=== PATIENT | female | born 1930 | race Caucasian/White ===

== ENCOUNTER 2016-10-03 13:22 | Outpatient (CLI) | payer MEDICARE, OTHER | END 2016-10-03 23:59 | DX: M12.871 Other specific arthropathies, not elsewhere classified, right ankle and foot (principal); N18.3 Chronic kidney disease, stage 3 (moderate); D50.9 Iron deficiency anemia, unspecified; I10 Essential (primary) hypertension ==

== ENCOUNTER 2017-07-24 10:55 | Outpatient (CLI) | payer MEDICARE, OTHER ==
[2017-07-24 19:11] LABS: BASOPHILS % (AUTO) 0.5 %; EOSINOPHILS # (AUTO) 0.4 10^3/uL (0.0-0.7); EOSINOPHILS % (AUTO) 4.1 %; HGB - HEMOGLOBIN 12.4 g/dL (12.0-16.0); MEAN CORPUSCULAR HEMOGLOBIN 31.7 pg (27.0-31.0); MEAN CORPUSCULAR HGB CONC 33.6 g/dL (32.0-36.0); MEAN CORPUSCULAR VOLUME 94.5 fL (81.0-99.0); MEAN PLATELET VOLUME 7.7 fL (7.9-10.8); MONOCYTES # (AUTO) 0.8 10^3/uL (0.0-1.0); MONOCYTES % (AUTO) 9.3 %; NEUTROPHILS # (AUTO) 5.9 10^3/uL (1.5-6.6); NEUTROPHILS % (AUTO) 64.1 %; RED BLOOD COUNT 3.91 10^6/uL (4.20-5.40); RED CELL DISTRIBUTION WIDTH 13.6 % (12.0-15.0); UNCORRECTED WHITE BLOOD COUNT 9.1 x10^3/uL; WHITE BLOOD COUNT 9.1 x10^3/uL (4.8-10.8)
[2017-07-24 19:28] LABS: ALBUMIN/GLOBULIN RATIO 1.4 (1.0-2.2); BILIRUBIN,TOTAL 0.6 mg/dL (0.2-1.0); BUN - BLOOD UREA NITROGEN 50 mg/dL (6-20); CALCIUM 9.6 mg/dL (8.5-10.3); CARBON DIOXIDE - CO2 26 mmol/L (21-32); CHLORIDE 103 mmol/L (101-111); CHOL/HDL RATIO 6.3 (<4.4); CHOLESTEROL 228 mg/dL; CREATININE 2.4 mg/dL (0.4-1.0); GFR - MDRD 19 (>89); GLUCOSE 108 mg/dL (70-100); HDL CHOLESTEROL 36 mg/dL; LDL/HDL RATIO 3.9 (<4.4); POTASSIUM 4.1 mmol/L (3.5-5.0); SODIUM 139 mmol/L (135-145); TOTAL PROTEIN 7.4 g/dL (6.7-8.2); TRIGLYCERIDES 263 mg/dL; VLDL CHOLESTEROL 53 mg/dL
== END 2017-07-24 10:56 | disposition home or self-care (01) ==
LOC: LAB.WCP 10:55
PROVIDERS: ATTEND Family Medicine
DX: G47.62 Sleep related leg cramps (principal); M12.871 Other specific arthropathies, not elsewhere classified, right ankle and foot; E87.1 Hypo-osmolality and hyponatremia; I12.9 Hypertensive chronic kidney disease with stage 1 through stage 4 chronic kidney disease, or unspecified chronic kidney disease; N18.3 Chronic kidney disease, stage 3 (moderate); E78.9 Disorder of lipoprotein metabolism, unspecified
CPT/HCPCS: 36415; 80053; 80061; 85025

== ENCOUNTER 2017-07-31 08:00 | Outpatient (CLI) | payer MEDICARE, OTHER ==
[2017-07-31 20:53] LABS: URIC ACID 9.7 mg/dL (2.6-7.2)
== END 2017-07-31 08:01 | disposition home or self-care (01) ==
LOC: LAB.WCP 08:00
PROVIDERS: ATTEND Family Medicine
DX: M12.871 Other specific arthropathies, not elsewhere classified, right ankle and foot (principal); L30.9 Dermatitis, unspecified
CPT/HCPCS: 36415; 84550; 85651; 86140

== ENCOUNTER 2018-03-14 10:28 | Outpatient (CLI) | payer MEDICARE, OTHER ==
[2018-03-14 12:34] LABS: BASOPHILS # (AUTO) 0.1 10^3/uL (0.0-0.1); BASOPHILS % (AUTO) 0.8 %; EOSINOPHILS # (AUTO) 0.3 10^3/uL (0.0-0.7); EOSINOPHILS % (AUTO) 3.9 %; HGB - HEMOGLOBIN 11.6 g/dL (12.0-16.0); LYMPHOCYTES # (AUTO) 2.4 10^3/uL (1.5-3.5); LYMPHOCYTES % (AUTO) 32.3 %; MEAN CORPUSCULAR HEMOGLOBIN 32.1 pg (27.0-31.0); MEAN CORPUSCULAR HGB CONC 34.5 g/dL (32.0-36.0); MEAN CORPUSCULAR VOLUME 92.9 fL (81.0-99.0); MEAN PLATELET VOLUME 8.5 fL (7.9-10.8); MONOCYTES # (AUTO) 0.8 10^3/uL (0.0-1.0); NEUTROPHILS # (AUTO) 3.8 10^3/uL (1.5-6.6); PLT - PLATELET COUNT 191 10^3/uL (130-450); RED BLOOD COUNT 3.61 10^6/uL (4.20-5.40); RED CELL DISTRIBUTION WIDTH 14.5 % (12.0-15.0); WHITE BLOOD COUNT 7.4 x10^3/uL (4.8-10.8)
[2018-03-14 12:57] LABS: THYROID STIMULATING HORMONE 9.23 uIU/mL (0.34-5.60)
[2018-03-14 13:02] LABS: FERRITIN 122.2 ng/mL (11.0-306.8)
[2018-03-14 13:03] LABS: ALBUMIN 4.4 g/dL (3.2-5.5); ALBUMIN/GLOBULIN RATIO 1.4 (1.0-2.2); CALCIUM 9.8 mg/dL (8.5-10.3); CREATININE 1.9 mg/dL (0.4-1.0); TOTAL PROTEIN 7.5 g/dL (6.7-8.2); URIC ACID 10.3 mg/dL (2.6-7.2)
== END 2018-03-14 10:29 ==
LOC: LAB.WCP 10:28
PROVIDERS: ATTEND Family Medicine
DX: E87.1 Hypo-osmolality and hyponatremia (principal); D50.9 Iron deficiency anemia, unspecified; N28.9 Disorder of kidney and ureter, unspecified; I10 Essential (primary) hypertension; E79.0 Hyperuricemia without signs of inflammatory arthritis and tophaceous disease
CPT/HCPCS: 36415; 80053; 82728; 83540; 84443; 84466; 84550; 85025

== ENCOUNTER 2018-04-26 08:00 | Outpatient (CLI) | payer MEDICARE, OTHER ==
[2018-04-26 19:18] LABS: CALCIUM 9.3 mg/dL (8.5-10.3); CREATININE 3.2 mg/dL (0.4-1.0); URIC ACID 5.7 mg/dL (2.6-7.2)
== END 2018-04-26 08:01 | disposition home or self-care (01) ==
LOC: LAB.WCP 08:00
PROVIDERS: ATTEND Physician Assistant
DX: N28.9 Disorder of kidney and ureter, unspecified (principal)
CPT/HCPCS: 36415; 80048; 84550

== ENCOUNTER 2018-04-27 10:55 | Outpatient (CLI) | payer MEDICARE, OTHER ==
[2018-04-27 11:37] LABS: CALCIUM 9.1 mg/dL (8.5-10.3)
== END 2018-04-27 10:56 | disposition home or self-care (01) ==
LOC: LAB 10:55
PROVIDERS: ATTEND Physician Assistant
DX: N18.3 Chronic kidney disease, stage 3 (moderate) (principal)
CPT/HCPCS: 36415; 80048

== ENCOUNTER 2018-04-29 09:19 | Outpatient (CLI) | payer MEDICARE, OTHER ==
[2018-04-29 13:41] LABS: CALCIUM 9.1 mg/dL (8.5-10.3); CREATININE 2.3 mg/dL (0.4-1.0)
== END 2018-04-29 09:20 ==
LOC: LAB.WCP 09:19
PROVIDERS: ATTEND Physician Assistant
DX: N18.3 Chronic kidney disease, stage 3 (moderate) (principal)
CPT/HCPCS: 36415; 80048

== ENCOUNTER 2018-05-02 08:00 | Outpatient (CLI) | payer MEDICARE, OTHER ==
[2018-05-02 18:38] LABS: CALCIUM 8.9 mg/dL (8.5-10.3); CREATININE 2.2 mg/dL (0.4-1.0)
== END 2018-05-02 08:01 | disposition home or self-care (01) ==
LOC: LAB.WCP 08:00
PROVIDERS: ATTEND Family Medicine
DX: E87.1 Hypo-osmolality and hyponatremia (principal)
CPT/HCPCS: 36415; 80048; 83930

== ENCOUNTER 2018-05-06 10:44 | Inpatient (IN) | payer MEDICARE, OTHER ==
[2018-05-06 10:58] LABS: BASOPHILS % (AUTO) 0.8 %; EOSINOPHILS # (AUTO) 0.8 10^3/uL (0.0-0.7); EOSINOPHILS % (AUTO) 12.8 %; HGB - HEMOGLOBIN 9.1 g/dL (12.0-16.0); LYMPHOCYTES # (AUTO) 1.3 10^3/uL (1.5-3.5); LYMPHOCYTES % (AUTO) 22.1 %; MEAN CORPUSCULAR HEMOGLOBIN 33.2 pg (27.0-31.0); MEAN CORPUSCULAR HGB CONC 35.5 g/dL (32.0-36.0); MEAN CORPUSCULAR VOLUME 93.7 fL (81.0-99.0); MEAN PLATELET VOLUME 8.3 fL (7.9-10.8); MONOCYTES # (AUTO) 0.9 10^3/uL (0.0-1.0); MONOCYTES % (AUTO) 14.6 %; NEUTROPHILS % (AUTO) 49.7 %; PLT - PLATELET COUNT 206 10^3/uL (130-450); RED BLOOD COUNT 2.75 10^6/uL (4.20-5.40); RED CELL DISTRIBUTION WIDTH 16.2 % (12.0-15.0); WHITE BLOOD COUNT 6.1 x10^3/uL (4.8-10.8)
[2018-05-06 11:20] LABS: ALBUMIN 3.3 g/dL (3.2-5.5); ALBUMIN/GLOBULIN RATIO 1.1 (1.0-2.2); BILIRUBIN,TOTAL 0.7 mg/dL (0.2-1.0); CALCIUM 8.8 mg/dL (8.5-10.3); CREATININE 2.3 mg/dL (0.4-1.0); TOTAL PROTEIN 6.3 g/dL (6.7-8.2)
[2018-05-06 12:09] LABS: BILIRUBIN,URINE NEGATIVE (NEGATIVE); CLARITY,URINE CLEAR (CLEAR); GLUCOSE, URINE (UA) NEGATIVE (NEGATIVE); KETONES,URINE (UA) NEGATIVE (NEGATIVE); LEUKOCYTE ESTERASE, URINE MODERATE (NEGATIVE); NITRITE,URINE NEGATIVE (NEGATIVE); OCCULT BLOOD,URINE NEGATIVE (NEGATIVE); PH,URINE 5.5 PH (5.0-7.5); PROTEIN,URINE NEGATIVE (NEGATIVE); UROBILINOGEN,URINE 0.2 (NORMAL) E.U./dL (NORMAL)
--- NOTE | 2018-05-06 12:11 | ED Physician Documentation ---
History of Present Illness - Stated complaint Stated Complaint: LOW SODIUM/WEAKNESS - Chief complaint Chief Complaint: General - Additonal information Additional information: hx from pt and sister in law 87 female per sister in law DNR limited sent to ED by PMD office today for weakness seems pt has been weak for several weeks - weak all over not focal - has seen [address] [facility], first for gout and her gout meds changed - allopuirinol caused rash so went back and that was dced and colchicine was increased then diarrhea - likely 2/2 colchicine - no culture done, no recent ab, no bad food sick contacts or travel her renal fxn was off so lasix was dced tne for generalized weakness - had labs - no UA - came back low Na so was advised to fluid restrict now she feels dehydrated and weaker than before - no fall so called clinic and sent to ED denies fever denies cough deneis soa denies abd pain denies NV denies MARTINEZ denies CP has neck pain she attributes to arthritis no abd paain some mild leg swelling Review of Systems Constitutional: reports: Fatigue. denies: Fever, Chills Throat: denies: Sore throat Cardiac: denies: Chest pain / pressure Respiratory: denies: Dyspnea, Cough GI: reports: Diarrhea. denies: Abdominal Pain, Nausea, Vomiting, Bloody / black stool : denies: Dysuria Neurologic: reports: Generalized weakness. 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 : None HEENT: Chronic vision loss Psych: None Musculoskeletal: Osteoarthritis Derm: None - Past Surgical History Past Surgical History: Yes General: Appendectomy Cardiovascular: Angioplasty HEENT: Other - Present Medications Home Medications: Ambulatory Orders Medication Instructions Recorded Confirmed Aspirin [Aspir 81] 81 mg PO DAILY 11/06/13 05/06/18 Cholecalciferol (Vitamin D3) 2,000 unit PO DAILY 11/06/13 05/06/18 [Vitamin D] Felodipine [Felodipine ER] 5 mg PO DAILY 11/06/13 05/06/18 Lisinopril 20 mg PO DAILY 11/06/13 05/06/18 Metoprolol Tartrate 50 mg PO BID 11/06/13 05/06/18 Multivit-Min/FA/Lutein/Zeaxant 1 tab PO DAILY 11/06/13 05/06/18 [Icaps Mv Tablet] Fonda-3 Fatty Acids/Fish Oil [Fish 1,200 units PO BID 11/06/13 05/06/18 Oil 1,000 mg Capsule] Simvastatin 40 mg PO DAILY 11/06/13 05/06/18 Furosemide [Lasix] 80 mg PO DAILY 11/18/13 05/06/18 Colchicine [Colcrys] 0.6 mg PO BID PRN 05/06/18 05/06/18 Gabapentin 300 mg PO BID PRN 05/06/18 05/06/18 Magnesium Oxide 500 mg PO QPM 05/06/18 05/06/18 - Allergies Allergies/Adverse Reactions: Allergies Allergy/AdvReac Type Severity Reaction Status Date / Time allopurinol Allergy Rash Verified 05/06/18 11:08 Sulfa (Sulfonamide Allergy Unknown Verified 05/06/18 12:14 Antibiotics) - Social History Does the pt smoke?: No Smoking Status: Never smoker Does the pt drink ETOH?: No Does the pt have substance abuse?: No - Immunizations Immunizations are current?: Yes - POLST Patient has POLST: No PD ED PE NORMAL - Vitals Vital signs reviewed: Yes - General General: Alert and oriented X 3 - HEENT HEENT: PERRL - Neck Neck: Supple, no meningeal sign - Cardiac Cardiac: RRR, Other (+ sig sys murmur not new per pt) - Respiratory Respiratory: Clear bilaterally - Abdomen Abdomen: Soft, Non tender - Derm Derm: Normal color - Extremities Extremities: No deformity, Other (mild edema ramírez) - Neuro Neuro: Alert and oriented X 3, contact lens blocker and cutter 2-12 intact, No motor deficit, No sensory deficit, Normal speech, Other (diffusely weak but non focal) Eye Opening: Spontaneous Motor: Obeys Commands Verbal: Oriented GCS Score: 15 Results - Vitals Vitals: Vital Signs - 24 hr 05/06/18 05/06/18 05/06/18 11:02 12:25 12:49 Temperature 36.0 C L Heart Rate 63 66 Respiratory 18 18 Rate Blood Pressure 104/56 L 98/54 L O2 Saturation 97 97 Oxygen O2 Source [With Activity] Room air O2 Source Room air - EKG (time done) 1140 Rate: Rate (enter#) (62) Rhythm: NSR Dumont: Normal Intervals: Normal CT, Wide QRS Ischemia: Other (Qs inf and anterior with coving s elev III V1 and lateral ST depression c/w subacute ischemia) - Labs Labs: Laboratory Tests 05/06/18 05/06/18 05/06/18 10:54 10:54 10:54 WBC 6.1 RBC 2.75 L Hgb 9.1 L Hct 25.8 L MCV 93.7 MCH 33.2 H MCHC 35.5 RDW 16.2 H Plt Count 206 MPV 8.3 Neut # (Auto) 3.0 Lymph # (Auto) 1.3 L [place] # (Auto) 0.9 Eos # (Auto) 0.8 H Baso # (Auto) 0.0 Absolute Nucleated RBC 0.00 Nucleated RBC % 0.0 Sodium 120 L* Potassium 4.5 Chloride 91 L Carbon Dioxide 17 L Anion Gap 12.0 BUN 62 H Creatinine 2.3 H Estimated GFR (MDRD) 20 L Glucose 105 H Calcium 8.8 Total Bilirubin 0.7 AST 50 H ALT 41 Alkaline Phosphatase 92 Troponin I 4.48 H* Total Protein 6.3 L Albumin 3.3 Globulin 3.0 Albumin/Globulin Ratio 1.1 Lipase 68 H Urine Color Urine Clarity Urine pH Ur Specific [place] Urine Protein Urine Glucose (UA) Urine Ketones Urine Occult Blood Urine Nitrite Urine Bilirubin Urine Urobilinogen Ur Leukocyte Esterase Urine RBC Urine WBC Ur Squamous Epith Cells Urine Bacteria Ur Microscopic Review Urine Culture Comments 05/06/18 11:46 WBC RBC Hgb Hct MCV MCH MCHC RDW Plt Count MPV Neut # (Auto) Lymph # (Auto) [place] # (Auto) Eos # (Auto) Baso # (Auto) Absolute Nucleated RBC Nucleated RBC % Sodium Potassium Chloride Carbon Dioxide Anion Gap BUN Creatinine Estimated GFR (MDRD) Glucose Calcium Total Bilirubin AST ALT Alkaline Phosphatase Troponin I Total Protein Albumin Globulin Albumin/Globulin Ratio Lipase Urine Color YELLOW Urine Clarity CLEAR Urine pH 5.5 Ur Specific [place] <=1.005 Urine Protein NEGATIVE Urine Glucose (UA) NEGATIVE Urine Ketones NEGATIVE Urine Occult Blood NEGATIVE Urine Nitrite NEGATIVE Urine Bilirubin NEGATIVE Urine Urobilinogen 0.2 (NORMAL) Ur Leukocyte Esterase MODERATE H Urine RBC 0-5 Urine WBC 11-25 H Ur Squamous Epith Cells MANY Squamous H Urine Bacteria Few Ur Microscopic Review INDICATED Urine Culture Comments NOT INDICATED PD MEDICAL DECISION MAKING - ED course ED course: anemia new from February renal insuff not new hyponatremia, symptomatic dehydration and a subacute [place] pt declines transfer for cath - wants med management - sister in law agrees with plan gave NS, asa, heparin, no BB 2/2on oral BB at home and HR 62 no nitrate 2/2 SBP 100 paged hospitalist at 1220 - Sepsis Event Vital Signs: Vital Signs - 24 hr 05/06/18 05/06/18 05/06/18 11:02 12:25 12:49 Temperature 36.0 C L Heart Rate 63 66 Respiratory 18 18 Rate Blood Pressure 104/56 L 98/54 L O2 Saturation 97 97 Oxygen O2 Source [With Activity] Room air O2 Source Room air Departure - Departure Disposition: 66 [facility] DC/Xfer Clinical Impression: Acute myocardial ischemia, Hyponatremia, Renal insufficiency, Dehydration Diarrhea Qualifiers: Diarrhea type: unspecified type Qualified Code(s): R19.7 - Diarrhea, unspecified Discharge Date/Time: 05/06/18 13:45
[2018-05-06] MEDS ORDERED: HEPARIN 25000UNITS/500ML (D5W) 25,000 UNIT/500 ML BAG IV STA (12:16)
[2018-05-06] MEDS ORDERED: ASPIRIN CHEW 81 MG TABLET PO STA (12:16)
[2018-05-06] MEDS ORDERED: NITROGLYCERIN 2% PASTE TOP STA (12:16)
[2018-05-06] MEDS ORDERED: SODIUM CHLORIDE 0.9% 1,000 ML IV ONE (12:21)
[2018-05-06 12:29] LABS: BACTERIA,URINE Few /HPF (None Seen); RBC,URINE 0-5 /HPF (0-5); SQUAMOUS EPITHELIAL CELL,UR MANY Squamous (<= Few)
[2018-05-06] MEDS ORDERED: TEMAZEPAM 15 MG CAPSULE PO PRN (12:55)
[2018-05-06] MEDS ORDERED: SODIUM CHLORIDE FLUSH 0.9% 10 ML SYRINGE IVP PRN (12:55)
[2018-05-06] MEDS ORDERED: ACETAMINOPHEN 325 MG TABLET PO PRN (12:55)
[2018-05-06] MEDS ORDERED: PROCHLORPERAZINE 10 MG/2 ML VIAL IVP PRN (12:55)
[2018-05-06] MEDS ORDERED: GABAPENTIN 300 MG CAPSULE PO PRN (12:59)
[2018-05-06] MEDS ORDERED: COLCHICINE 0.6 MG TABLET PO PRN (12:59)
[2018-05-06] MEDS ORDERED: NITROGLYCERIN SL 0.4 MG TABLET SL STA (13:02)
[2018-05-06] MEDS ORDERED: CLOPIDOGREL 300 MG TABLET PO STA (13:07)
--- NOTE | 2018-05-06 14:01 | XRAY Report ---
Reason: Subacute PA Procedure Date: 05/06/2018 Accession Number: [id number] / [id number] Procedure: XR - Chest 2 View X-Ray CPT Code: 88782 FULL RESULT: EXAM: CHEST RADIOGRAPHY EXAM DATE: 05/06/2018 01:32 PM. CLINICAL HISTORY: Subacute PA. COMPARISON: CHEST 1 VIEW 01/29/2014. TECHNIQUE: 2 views. FINDINGS: Lungs/Pleura: Interval development of a small left and possibly small right pleural effusion, as well as interval increase in pulmonary interstitial markings. Mediastinum: Heart and mediastinal contours are unremarkable when accounting for AP technique. Other: None. IMPRESSION: Interval development of small pleural effusion as well as likely interstitial pulmonary congestion. RADIA
[2018-05-06] MEDS: ENOXAPARIN 40 MG/0.4 ML SYRINGE SUBQ SCH ×2 (14:43→20:45)
[2018-05-06] MEDS: METOPROLOL TARTRATE 50 MG TABLET PO SCH ×2 (14:53→20:46)
[2018-05-06] MEDS: SODIUM CHLORIDE 0.9% 1,000 ML IV SCH (14:53)
[2018-05-06] MEDS: FAMOTIDINE 20 MG TABLET PO SCH (14:53)
[2018-05-06] MEDS: NITROGLYCERIN 2% PASTE TOP SCH ×2 (14:54→21:04)
[2018-05-06] MEDS: SODIUM CHLORIDE FLUSH 0.9% 10 ML SYRINGE IVP SCH (15:36)
[2018-05-06 17:36] LABS: CALCIUM 8.5 mg/dL (8.5-10.3)
[2018-05-06] MEDS: OMEGA-3 ACID ETHYL ESTERS 1 GM CAPSULE PO SCH (20:45)
[2018-05-06] MEDS: MAGNESIUM OXIDE 400 MG TABLET PO SCH (20:45)
--- NOTE | 2018-05-06 22:15 | HISTORY & PHYSICAL EXAMINATION ---
DATE OF SERVICE: 05/06/2018 Physician: Yecenia Mandel MD HISTORY OF PRESENT ILLNESS: This is an 87-year-old white female with a history of remote TX and PTCA, history of hypertension, gout, CKD, murmur. Patient started having trouble approximately 2 weeks ago when she had a gouty attack; medications were changed which caused her to have a rash. The medication also gave her diarrhea. She missed several of her medications and was told to decrease her Lasix from 80 mg a day to 40 mg a day. She became weaker with the diarrhea, had no p.o. intake for the previous 2 days. She went to see her doctor approximately 3 days ago, and lab tests were drawn. She was called today to go to the emergency room because of abnormal sodium of 120. She presented to the emergency room and described this story of weakness, and a troponin level was drawn, which was found to be 4.5, and she is being admitted for an TX. PAST MEDICAL HISTORY 1. Hypertension. 2. Chronic kidney disease. 3. Heart murmur. 4. Gout. 5. Legal blindness. ALLERGIES 1. ALLOPURINOL. 2. SULFA. MEDICATIONS 1. Magnesium 500 mg daily. 2. Gabapentin 300 mg b.i.d. p.r.n. 3. Simvastatin 40 mg daily. 4. Rosanky-3 fish oil capsules 1200 units b.i.d. 5. Multivitamin daily. 6. Metoprolol tartrate 50 mg b.i.d. 7. Lisinopril 20 mg daily. 8. Lasix 80 mg daily, recently decreased to 40 mg daily. 9. Felodipine 5 mg daily. 10. Colchicine 0.6 mg b.i.d. 11. Vitamin D 2000 units daily. 12. Aspirin 81 mg daily. PAST SURGICAL HISTORY 1. Hip replacement. 2. Appendectomy. 3. Forehead laceration, which was sutured. FAMILY HISTORY: No inherited diseases. SOCIAL HISTORY: The patient was twice. Her second 4 years ago. 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 He also was in the [employer], and [place]. The patient is an ex-smoker who quit 40 years ago, drinks no alcohol, uses no illicit drugs. REVIEW OF SYSTEMS: The [id number] is her caregiver. Otherwise, the patient is independent with ADLs, including laundry, cooking (microwaving frozen dinner), toileting. A comprehensive review of systems was performed, and the pertinent positives are in the HPI. PHYSICAL EXAMINATION GENERAL: Thin, elderly, white female. She is in no distress. VITAL SIGNS: Blood pressure 98/54, pulse of 66 in sinus rhythm, afebrile, respiratory rate 18, room air saturation 97%. HEENT: Reveals that the right eye's gaze is to the right and is blind. Left eye has diminished vision. Her oral mucosa is moist. She has poor dentition. NECK: Without JVD or carotid bruits. LUNGS: Clear. HEART: Sounds, however very soft. S1, S2 and a 2/6 to 3/6 mid to late peaking systolic murmur heard at the base with radiation to the apex. There is no gallop. No RV heave. ABDOMEN: Soft with positive bowel sounds. Nontender. No organomegaly. EXTREMITIES: Showed no ankle edema. She has swelling of many toes of both feet bilaterally with redness, but no warmth. NEUROLOGIC: Grossly intact, except for the blindness. LABORATORY DATA: Sodium 120, potassium 4.5, BUN 62, creatinine 2.3 (2.0 is her baseline), AST 50, ALT 41, troponin 4.48, lipase 68. White blood count 6.1 with a normal differential, hemoglobin 9.1 with an MCV of 93, RDW up at 16, platelet count normal at 206. No INR was done. Urinalysis had moderate leukocyte esterase but many squamous cells. CHEST X-RAY: Early CHF and normal heart size. EKG: Normal sinus rhythm with occasional PVCs. Q-waves are present in leads III and aVF. There is horizontal ST depression in leads II and aVL. Q-waves are also present in V1-V3, and there is poor R-wave progression. There are ST horizontal depressions in V4 through V6. All the above changes are new since an EKG from 2014. IMPRESSION/DIAGNOSES 1. Non-ST elevation myocardial infarction. 2. Hyponatremia. 3. Chronic kidney disease. 4. Murmur. 5. Gout. PLAN 1. Admit the patient to Med/Surg on telemetry. The patient has requested no intervention; she, therefore, was not transferred for an angiogram from the ER. Begin medical management for coronary artery disease and acute TX, including continuing aspirin, starting Plavix, Lovenox therapeutic doses, beta ally and nitrites, watching her borderline low blood pressure carefully. Check lipid tests. Cycle her troponins to see where they peak or the downward trend. Obtain an Echo to evaluate LV wall motion abnormalities and LV ejection fraction, which will guide therapy. 2. Start very slow saline hydration to correct the hyponatremia. Advance her diet since she no longer has the diarrhea for the past 2 days and does have an appetite. 3. Follow her BMP, especially BUN and creatinine carefully, and avoid nephrotoxics. 4. Obtain the Echo to evaluate the murmur as well and LV function. 5. Continue with her uric acid and gout pain medications. Avoid medication that would increase her uric acid level. CODE STATUS: DNR. DVT PROPHYLAXIS: Pharmacotherapy. ATTESTATION: The patient is expected to be discharged or transferred to another facility within 96 hours: Yes. TD: 05/06/2018 20:31 CLAUDIA
[2018-05-07] MEDS: SODIUM CHLORIDE FLUSH 0.9% 10 ML SYRINGE IVP SCH ×3 (00:26→20:06)
[2018-05-07 06:05] LABS: BASOPHILS % (AUTO) 0.8 %; EOSINOPHILS # (AUTO) 0.3 10^3/uL (0.0-0.7); HGB - HEMOGLOBIN 8.7 g/dL (12.0-16.0); LYMPHOCYTES # (AUTO) 0.9 10^3/uL (1.5-3.5); LYMPHOCYTES % (AUTO) 17.9 %; MEAN CORPUSCULAR HGB CONC 35.1 g/dL (32.0-36.0); MEAN CORPUSCULAR VOLUME 93.9 fL (81.0-99.0); MEAN PLATELET VOLUME 8.8 fL (7.9-10.8); MONOCYTES # (AUTO) 0.7 10^3/uL (0.0-1.0); NEUTROPHILS % (AUTO) 60.3 %; PLT - PLATELET COUNT 190 10^3/uL (130-450); RED BLOOD COUNT 2.63 10^6/uL (4.20-5.40); RED CELL DISTRIBUTION WIDTH 16.3 % (12.0-15.0)
[2018-05-07 06:15] LABS: ALBUMIN/GLOBULIN RATIO 1.2 (1.0-2.2); BILIRUBIN,TOTAL 0.3 mg/dL (0.2-1.0); CALCIUM 8.5 mg/dL (8.5-10.3); CREATININE 1.9 mg/dL (0.4-1.0); TOTAL PROTEIN 5.5 g/dL (6.7-8.2)
[2018-05-07 06:33] LABS: CHOL/HDL RATIO 5.4 (<4.4); CHOLESTEROL 134 mg/dL; HDL CHOLESTEROL 25 mg/dL; LDL CHOLESTEROL,CALCULATED 92 mg/dL; LDL/HDL RATIO 3.7 (<4.4); VLDL CHOLESTEROL 17 mg/dL
[2018-05-07] MEDS: NITROGLYCERIN 2% PASTE TOP SCH ×2 (06:47→06:53)
[2018-05-07] MEDS: SODIUM CHLORIDE 0.9% 1,000 ML IV SCH (06:47)
--- NOTE | 2018-05-07 08:48 | PROVIDER PROGRESS NOTE ---
Assessment/Plan - Problem List (1) NSTEMI (non-ST elevated myocardial infarction) Assessment/Plan: By timing the troponins, she had an IN 2-4 days ago, perhaps on Sat which was the day she felt so tired that she called her [id number] crying. Continue ASA, Plavix, B-ally and statin. Lovenox therapeutic dose for 24-48 hours. No invasive management was requested by patient and she is a DNR. Will begin ambulation. (2) Ischemic cardiomyopathy Assessment/Plan: LVEF is 40% with LV wall motion abnormalities. Continue B-ally (post-IN and for heart failure) but change Metoprolol to Coreg since a lower B-ally dose can be used, due to borderline low BP and 1st degree heart block. Will stop Felodipine and start Hydralazine and Nitrates. Start Spironolactone, monitor creatinine and Potassium. She may not need the Lasix therefore. Start PT. (3) Valvular heart disease Assessment/Plan: The patient now has critical aortic stenosis and moderate-severe mitral regurgitation, by Echo. She was offered valve surgery 4 years ago and declined it. Continue with plan for medical management for ischemic cardiomyopathy. (4) Pulmonary HTN Assessment/Plan: Likely multifactorial: from significant valve disease and LV cardiomyopathy. The valve disease cannot be ameliorated, but unloading the LV will be started. Will stop Felodipine, start Hydralazine and nitrates, continue B-ally, start Spironolactone, continue Lasix. (5) Pulmonary edema Assessment/Plan: Sodium is better, therefore will stop iv saline and start Spironolactone and start free-water restriction. (6) Hyponatremia Assessment/Plan: Low sodium is likely multifactorial: from Lasix use, and no po intake except water when she had diarrhea for 10 days. This may be adding to her confusion. Serum sodium is now improving. Due to CHF on CXR, will decrease or stop iv saline, and fluid restrict free water intake orally. Monitor BMP daily. (7) Anemia Assessment/Plan: This is probably due to CKD and poor nutrition. Monitor CBC daily, check B12, Fiolate, Iron panel and stool guaic, and replace vitamins. (8) Gout Qualifiers: Gout site: toe Laterality: unspecified laterality Assessment/Plan: Will try to minimize meds that cause uric acid retention, like Lasix. Continue her Colcrys. (9) CKD (chronic kidney disease) stage 4, GFR 15-29 ml/min Assessment/Plan: Abnormal but stable. Monitor BMP daily. (10) Hallucinations Assessment/Plan: She likely has delerium from an unfamiliar location vs abnormal visions from being legally blind. Head CT to eval for CVA or hemorrhage ordered. Watch for ing at night. - Current Meds Current Meds: Current Medications Generic Name Dose Route Start Last Admin Trade Name Freq PRN Reason Stop Dose Admin Enoxaparin Sodium 25 mg 05/06/18 13:00 05/06/18 20:45 Lovenox SUBQ 25 mg BID MELISA Administration Famotidine 20 mg 05/06/18 13:00 05/06/18 14:53 Pepcid PO 20 mg DAILY MELISA Administration Sodium Chloride 1,000 mls @ 60 mls/hr 05/06/18 13:00 05/07/18 06:47 Normal Saline 0.9% IV 60 mls/hr .[id number] MELISA Administration Magnesium Oxide 400 mg 05/06/18 21:00 05/06/18 20:45 Mag Ox PO 400 mg QPM MELISA Administration Metoprolol Tartrate 25 mg 05/06/18 13:00 05/06/18 20:46 Lopressor PO 25 mg BID MELISA Administration Nitroglycerin 0.25 inch 05/06/18 14:00 05/07/18 06:53 Nitro-Bid (Pkt) TOP Not Given Q8H MELISA Sosgi-4-Rihx Ethyl Esters 1 gm 05/06/18 21:00 05/06/18 20:45 Lovaza PO 1 gm BID MELISA Administration Sodium Chloride 10 ml 05/06/18 17:00 05/07/18 00:26 Normal Saline Flush 0.9% IVP Not Given 0100,0900,1700 MELISA - Lab Result Fish Bone Diagrams: 05/07/18 05:15 05/09/18 06:05 - EKG Results EKG Interpreted Independently: Yes EKG Comparison: Unchanged from prior EKG EKG Findings: NSR, rate 60, 1st degree AV block, QS waves V1-V3, consistent with anterior IN (age indeterminate), lateral ST depressions and flat inferior T waves, consistent with infero-lateral ischemia. - Additional Planning My Orders: My Active Orders 05/06/18 12:55 Activity Orders [RC] Routine IO [RC] IOSHIFT Initiate Bowel Care Protocol [RC] .protocol Initiate Flu Vaccine Screening [RC] ONCE Initiate Line Care Protocol [RC] .protocol Initiate Line Care Protocol [RC] QSHIFT Initiate Personal Care Protoco [RC] .protocol Initiate Pneumonia Vaccine Scr [RC] ONCE Oxygen Therapy [RC] Routine Vital Signs [RC] Q4HR Acetaminophen [Tylenol] 650 mg PO Q4HR PRN Prochlorperazine Inj [Compazine Inj] 10 mg IVP Q6HR PRN Sodium Chloride Flush 0.9% [Normal Saline Flush 0.9%] 10 ml IVP PRN PRN Temazepam [Restoril] 7.5 mg PO QPM PRN Code Status [OTHERS] Routine Condition of Patient [OTHERS] Routine DVT Prophylaxis [OTHERS] Routine 05/06/18 12:56 Daily Weight [RC] 0600 IV Insert [RC] .ONCE 05/06/18 12:57 Telemetry- [RC] Q4HR 05/06/18 12:59 Colchicine [Colcrys] 0.6 mg PO BID PRN Gabapentin [Neurontin] 300 mg PO BID PRN 05/06/18 13:00 Enoxaparin [Lovenox] 25 mg SUBQ BID Famotidine [Pepcid] 20 mg PO DAILY Metoprolol Tartrate [Lopressor] 25 mg PO BID Sodium Chloride 0.9% [Normal Saline 0.9%] 1,000 ml IV 60 mls/hr 05/06/18 13:02 Echo Transthoracic Complete [ECHO] Routine 05/06/18 14:00 Nitroglycerin 2% Paste (Pkt) [Nitro-Bid (Pkt)] 0.25 inch TOP Q8H 05/06/18 16:10 Nutrition Consult [CONS] Routine 05/06/18 17:00 Sodium Chloride Flush 0.9% [Normal Saline Flush 0.9%] 10 ml IVP 0100,0900,1700 05/06/18 21:00 Magnesium Oxide [Mag Ox] 400 mg PO QPM [place]-3 Acid Ethyl Esters [Lovaza] 1 gm PO BID 05/06/18 Dinner Cardiac Diet [DIET] 05/07/18 Evaluate and Treat OT [OT] Routine Evaluate and Treat PT [PT] Routine 05/07/18 09:00 Chest 1 View X-Ray [XR] DAILY Aspirin EC [Ecotrin] 81 mg PO DAILY Atorvastatin [Lipitor] 20 mg PO DAILY Cholecalciferol [Vitamin D3] 2,000 unit PO DAILY Polyethylene Glycol 3350 [Miralax] 17 gm PO DAILY 05/08/18 05:00 CMP [COMPREHENSIVE METABOLIC PANEL] [CHEM] DAILYLAB 05/08/18 09:00 Chest 1 View X-Ray [XR] DAILY 05/09/18 05:00 CMP [COMPREHENSIVE METABOLIC PANEL] [CHEM] DAILYLAB Subjective - Subjective Patient Reports: Feeling Better Nursing Reports: No Complaints, Other (Pt told staff that she could see a little boy in her room and in hallway (there was none)) Objective Vital Signs: Vital Signs - 24 hr 05/06/18 05/06/18 05/06/18 11:02 12:25 12:49 Temperature 36.0 C L Heart Rate 63 66 Heart Rate [ Brachial] Respiratory 18 18 Rate Blood Pressure 104/56 L 98/54 L Blood Pressure [Right Brachial artery] O2 Saturation 97 97 05/06/18 05/06/18 05/06/18 13:55 14:58 16:00 Temperature 36.2 C L 36.2 C L Heart Rate 65 Heart Rate [ 65 100 Brachial] Respiratory 16 16 16 Rate Blood Pressure Blood Pressure 109/88 H 110/59 L [Right Brachial artery] O2 Saturation 98 98 93 05/06/18 05/06/18 05/07/18 20:46 21:00 00:16 Temperature 36.2 C L 36.5 C Heart Rate Heart Rate [ 84 57 L Brachial] Respiratory 16 16 Rate Blood Pressure 103/58 L Blood Pressure 117/53 L 109/67 [Right Brachial artery] O2 Saturation 95 93 05/07/18 05/07/18 03:43 06:53 Temperature 36.3 C L Heart Rate Heart Rate [ 70 Brachial] Respiratory 18 Rate Blood Pressure Blood Pressure 113/54 L 97/68 [Right Brachial artery] O2 Saturation 96 Oxygen O2 Source [With Activity] Room air O2 Source Room air I&O (Last 24 Hrs): Intake and Output Totals x24h 05/05/18 05/06/18 05/07/18 23:59 23:59 23:59 Intake Total 1365 954 Output Total 250 Balance 1365 704 General: Other (Slow but appropriate speech) HEENT: Other (Unequal gaze) Neck: Supple, No JVD Neuro: Non Focal Cardiovascular: Other (3/6 systolic murmur) Respiratory: No respiratory distress, Breath sounds nml Abdomen: Soft Extremities: No edema - Results Results: Laboratory Results WBC 5.0 x10^3/uL (4.8-10.8) 05/07/18 05:15 RBC 2.63 10^6/uL (4.20-5.40) L 05/07/18 05:15 Hgb 8.7 g/dL (12.0-16.0) L 05/07/18 05:15 Hct 24.7 % (37.0-47.0) L 05/07/18 05:15 MCV 93.9 fL (81.0-99.0) 05/07/18 05:15 MCH 33.0 pg (27.0-31.0) H 05/07/18 05:15 MCHC 35.1 g/dL (32.0-36.0) 05/07/18 05:15 RDW 16.3 % (12.0-15.0) H 05/07/18 05:15 Plt Count 190 10^3/uL (130-450) 05/07/18 05:15 MPV 8.8 fL (7.9-10.8) 05/07/18 05:15 Neut # (Auto) 3.0 10^3/uL (1.5-6.6) 05/07/18 05:15 Lymph # (Auto) 0.9 10^3/uL (1.5-3.5) L 05/07/18 05:15 [place] # (Auto) 0.7 10^3/uL (0.0-1.0) 05/07/18 05:15 Eos # (Auto) 0.3 10^3/uL (0.0-0.7) 05/07/18 05:15 Baso # (Auto) 0.0 10^3/uL (0.0-0.1) 05/07/18 05:15 Absolute Nucleated RBC 0.00 x10^3/uL 05/07/18 05:15 Nucleated RBC % 0.1 /100WBC 05/07/18 05:15 Sodium 126 mmol/L (135-145) L 05/07/18 05:15 Potassium 4.6 mmol/L (3.5-5.0) 05/07/18 05:15 Chloride 99 mmol/L (101-111) L 05/07/18 05:15 Carbon Dioxide 17 mmol/L (21-32) L 05/07/18 05:15 Anion Gap 10.0 (6-13) 05/07/18 05:15 BUN 55 mg/dL (6-20) H 05/07/18 05:15 Creatinine 1.9 mg/dL (0.4-1.0) H 05/07/18 05:15 Estimated GFR (MDRD) 25 (>89) L 05/07/18 05:15 Glucose 102 mg/dL (70-100) H 05/07/18 05:15 Calcium 8.5 mg/dL (8.5-10.3) 05/07/18 05:15 Total Bilirubin 0.3 mg/dL (0.2-1.0) 05/07/18 05:15 AST 51 IU/L (10-42) H 05/07/18 05:15 ALT 52 IU/L (10-60) 05/07/18 05:15 Alkaline Phosphatase 120 IU/L (42-121) 05/07/18 05:15 Troponin I 3.62 ng/mL (<0.49) H* 05/07/18 05:15 Total Protein 5.5 g/dL (6.7-8.2) L 05/07/18 05:15 Albumin 3.0 g/dL (3.2-5.5) L 05/07/18 05:15 Globulin 2.5 g/dL (2.1-4.2) 05/07/18 05:15 Albumin/Globulin Ratio 1.2 (1.0-2.2) 05/07/18 05:15 Triglycerides 87 mg/dL (-149) 05/07/18 05:15 Cholesterol 134 mg/dL (-199) 05/07/18 05:15 LDL Cholesterol, Calc 92 mg/dL (-129) 05/07/18 05:15 VLDL Cholesterol 17 mg/dL 05/07/18 05:15 HDL Cholesterol 25 mg/dL (60-) L 05/07/18 05:15 LDL/HDL Ratio 3.7 (<4.4) 05/07/18 05:15 Cholesterol/HDL Ratio 5.4 (<4.4) 05/07/18 05:15 Lipase 68 U/L (22-51) H 05/06/18 10:54 Urine Color YELLOW 05/06/18 11:46 Urine Clarity CLEAR (CLEAR) 05/06/18 11:46 Urine pH 5.5 PH (5.0-7.5) 05/06/18 11:46 Ur Specific [place] <=1.005 (1.002-1.030) 05/06/18 11:46 Urine Protein NEGATIVE mg/dL (NEGATIVE) 05/06/18 11:46 Urine Glucose (UA) NEGATIVE mg/dL (NEGATIVE) 05/06/18 11:46 Urine Ketones NEGATIVE mg/dL (NEGATIVE) 05/06/18 11:46 Urine Occult Blood NEGATIVE (NEGATIVE) 05/06/18 11:46 Urine Nitrite NEGATIVE (NEGATIVE) 05/06/18 11:46 Urine Bilirubin NEGATIVE (NEGATIVE) 05/06/18 11:46 Urine Urobilinogen 0.2 (NORMAL) E.U./dL (NORMAL) 05/06/18 11:46 Ur Leukocyte Esterase MODERATE (NEGATIVE) H 05/06/18 11:46 Urine RBC 0-5 /HPF (0-5) 05/06/18 11:46 Urine WBC 11-25 /HPF (0-5) H 05/06/18 11:46 Ur Squamous Epith Cells MANY Squamous (<= Few) H 05/06/18 11:46 Urine Bacteria Few /HPF (None Seen) 05/06/18 11:46 Ur Microscopic Review INDICATED 05/06/18 11:46 Urine Culture Comments NOT INDICATED 05/06/18 11:46 - Procedures Procedures: Procedures HIP BEARING SURFACE, [id number] (01/29/14) PACKED CELL TRANSFUSION (01/29/14) PARTIAL HIP REPLACEMENT (01/29/14)
[2018-05-07] MEDS: CHOLECALCIFEROL 1,000 UNIT TABLET PO SCH (09:16)
[2018-05-07] MEDS: METOPROLOL TARTRATE 50 MG TABLET PO SCH (09:16)
[2018-05-07] MEDS: ENOXAPARIN 40 MG/0.4 ML SYRINGE SUBQ SCH ×2 (09:17→20:12)
[2018-05-07] MEDS: ATORVASTATIN 10 MG TABLET PO SCH (09:17)
[2018-05-07] MEDS: FAMOTIDINE 20 MG TABLET PO SCH (09:17)
[2018-05-07] MEDS: OMEGA-3 ACID ETHYL ESTERS 1 GM CAPSULE PO SCH ×2 (09:17→20:05)
[2018-05-07] MEDS: ASPIRIN EC 81 MG TABLET PO SCH (09:17)
--- NOTE | 2018-05-07 09:20 | XRAY Report ---
Reason: SOB, F/U CHF and effusion Procedure Date: 05/07/2018 Accession Number: [id number] / [id number] Procedure: XR - Chest 1 View X-Ray CPT Code: 99401 FULL RESULT: EXAM: CHEST RADIOGRAPHY EXAM DATE: 05/07/2018 09:11 AM. CLINICAL HISTORY: Shortness of breath, follow up congestive heart failure and effusion. COMPARISON: 2-view chest radiography 05/06/2018. TECHNIQUE: 1 view. FINDINGS: This portable exam is limited by positioning and rotation. Lungs/Pleura: Prominence of interstitial lung markings and small bilateral pleural effusions suggestive of congestion. No pneumothorax. No lobar consolidation. Mediastinum: Stable mild cardiomegaly. Other: None. IMPRESSION: Small bilateral pleural effusions and crowding of interstitial pulmonary markings suggestive of edema. RADIA
[2018-05-07] MEDS ORDERED: SODIUM CHLORIDE 0.9% 1,000 ML IV SCH (09:21)
[2018-05-07] MEDS: POLYETHYLENE GLYCOL 3350 17 GM PACKET PO SCH (09:21)
[2018-05-07] MEDS ORDERED: METOPROLOL TARTRATE 25 MG TABLET PO SCH (09:23)
[2018-05-07] MEDS ORDERED: TEMAZEPAM 7.5 MG CAPSULE PO PRN (09:24)
[2018-05-07 10:07] LABS: % IRON SATURATION 18 % (20-50); IRON 38 ug/dL (28-170); TOTAL IRON BINDING CAPACITY 217 ug/dL (250-450); TRANSFERRIN 155 mg/dL (192-382)
[2018-05-07] MEDS: CLOPIDOGREL 75 MG TABLET PO SCH (10:55)
[2018-05-07] MEDS: SPIRONOLACTONE 25 MG TABLET PO SCH (10:55)
[2018-05-07] MEDS: ISOSORBIDE MONONITRATE ER 30 MG TABLET PO SCH (12:47)
[2018-05-07] MEDS: MAGNESIUM OXIDE 400 MG TABLET PO SCH (20:05)
[2018-05-07] MEDS: CARVEDILOL 12.5 MG TABLET PO SCH (20:06)
[2018-05-07] MEDS: hydrALAZINE 10 MG TABLET PO SCH (20:06)
[2018-05-07] MEDS ORDERED: HALOPERIDOL 5 MG/ML VIAL IM SCH (23:58)
[2018-05-08] MEDS: SODIUM CHLORIDE FLUSH 0.9% 10 ML SYRINGE IVP SCH ×3 (00:16→20:02)
[2018-05-08] MEDS ORDERED: HALOPERIDOL 5 MG/ML VIAL IM SCH (00:26)
[2018-05-08 07:03] LABS: ALBUMIN 2.9 g/dL (3.2-5.5); ALBUMIN/GLOBULIN RATIO 1.1 (1.0-2.2); BILIRUBIN,TOTAL 0.7 mg/dL (0.2-1.0); CALCIUM 8.6 mg/dL (8.5-10.3); CREATININE 1.7 mg/dL (0.4-1.0); TOTAL PROTEIN 5.5 g/dL (6.7-8.2)
[2018-05-08] MEDS ORDERED: SENNA 8.6 MG TABLET PO SCH (08:00)
[2018-05-08] MEDS ORDERED: DOCUSATE SODIUM 250 MG CAPSULE PO SCH (08:00)
[2018-05-08] MEDS ORDERED: SODIUM CHLORIDE 0.9% 500 ML IV ONE (09:03)
[2018-05-08] MEDS: ATORVASTATIN 10 MG TABLET PO SCH (09:22)
[2018-05-08] MEDS: hydrALAZINE 10 MG TABLET PO SCH ×2 (09:22→20:03)
[2018-05-08] MEDS: ASPIRIN EC 81 MG TABLET PO SCH (09:22)
[2018-05-08] MEDS: FAMOTIDINE 20 MG TABLET PO SCH (09:22)
[2018-05-08] MEDS: SPIRONOLACTONE 25 MG TABLET PO SCH (09:22)
[2018-05-08] MEDS: CARVEDILOL 12.5 MG TABLET PO SCH ×2 (09:23→20:03)
[2018-05-08] MEDS: CLOPIDOGREL 75 MG TABLET PO SCH (09:24)
[2018-05-08] MEDS: OMEGA-3 ACID ETHYL ESTERS 1 GM CAPSULE PO SCH ×2 (09:24→20:02)
[2018-05-08] MEDS: CHOLECALCIFEROL 1,000 UNIT TABLET PO SCH (09:24)
[2018-05-08] MEDS: POLYETHYLENE GLYCOL 3350 17 GM PACKET PO SCH (09:26)
--- NOTE | 2018-05-08 09:39 | XRAY Report ---
Reason: SOB, F/U CHF and effusion Procedure Date: 05/08/2018 Accession Number: [id number] / [id number] Procedure: XR - Chest 1 View X-Ray CPT Code: 77425 FULL RESULT: EXAM: CHEST RADIOGRAPHY EXAM DATE: 05/08/2018 09:18 AM. CLINICAL HISTORY: SOB, F/U CHF and effusion. COMPARISON: None. TECHNIQUE: 1 view. FINDINGS: Lungs/Pleura: Increased patient rotation to the left. Increase mild vascular prominence and possible interstitial edema/infiltrates. Small bilateral pleural effusions appear increased. Associated increased lower lung opacity and some bibasilar consolidation, left greater than right, which could represent increasing pleural fluid and atelectasis. Infiltrate/pneumonia not excluded. Mediastinum: Stable heart size, allowing for the difference in positioning. Other: Dextroconvexity thoracic scoliosis redemonstrated. IMPRESSION: 1. Increase mild vascular prominence and interstitial edema or infiltrate and increased bilateral pleural effusions and bibasilar opacities. This may all represent progressive CHF. Pneumonia not excluded. RADIA
[2018-05-08] MEDS: ISOSORBIDE MONONITRATE ER 30 MG TABLET PO SCH (12:08)
[2018-05-08] MEDS: ENOXAPARIN 30 MG/0.3 ML SYRINGE SUBQ SCH (12:08)
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
[2018-05-08] MEDS: MAGNESIUM OXIDE 400 MG TABLET PO SCH (20:02)
[2018-05-08] MEDS ORDERED: QUEtiapine 25 MG TABLET PO SCH (21:00)
[2018-05-09] MEDS: SODIUM CHLORIDE FLUSH 0.9% 10 ML SYRINGE IVP SCH ×2 (00:14→11:50)
[2018-05-09 06:43] LABS: ALBUMIN 3.1 g/dL (3.2-5.5); ALBUMIN/GLOBULIN RATIO 1.2 (1.0-2.2); BILIRUBIN,TOTAL 0.8 mg/dL (0.2-1.0); CALCIUM 8.8 mg/dL (8.5-10.3); TOTAL PROTEIN 5.7 g/dL (6.7-8.2)
[2018-05-09] MEDS ORDERED: SENNA 8.6 MG TABLET ONE (06:57)
[2018-05-09] MEDS ORDERED: DOCUSATE SODIUM 250 MG CAPSULE PO SCH (09:00)
[2018-05-09] MEDS ORDERED: SENNA 8.6 MG TABLET PO SCH (09:00)
[2018-05-09] MEDS: POLYETHYLENE GLYCOL 3350 17 GM PACKET PO SCH (10:50)
[2018-05-09] MEDS: SPIRONOLACTONE 25 MG TABLET PO SCH (10:50)
[2018-05-09] MEDS: CLOPIDOGREL 75 MG TABLET PO SCH (10:52)
[2018-05-09] MEDS: CARVEDILOL 12.5 MG TABLET PO SCH (10:52)
[2018-05-09] MEDS: OMEGA-3 ACID ETHYL ESTERS 1 GM CAPSULE PO SCH (10:52)
[2018-05-09] MEDS: ATORVASTATIN 10 MG TABLET PO SCH (10:52)
[2018-05-09] MEDS: CHOLECALCIFEROL 1,000 UNIT TABLET PO SCH (10:52)
[2018-05-09] MEDS: ASPIRIN EC 81 MG TABLET PO SCH (10:53)
[2018-05-09] MEDS: hydrALAZINE 10 MG TABLET PO SCH (10:53)
[2018-05-09] MEDS: FAMOTIDINE 20 MG TABLET PO SCH (10:53)
[2018-05-09] MEDS: ENOXAPARIN 30 MG/0.3 ML SYRINGE SUBQ SCH (11:50)
--- NOTE | 2018-05-09 13:39 | Discharge Plan ---
Discharge Plan Disposition: 03 SNF DC/Xfer Condition: Fair Diet: Cardiac Activity Restrictions: Activity as Tolerated Shower Restrictions: No Driving Restrictions: No Assistance Devices: Walker Weight Bearing: Full Weight No Smoking: If you smoke, Please STOP! Call for help. Follow-up with: Delicia Castle PA [Primary Care Provider] -
--- NOTE | 2018-05-09 14:17 | Discharge Plan ---
"Discharge Plan [facility] / [facility] - Discharge Plan And Transition Orders Disposition: 03 SNF DC/Xfer Condition: Fair Allergies and Adverse Reactions: Allergies Allergy/AdvReac Type Severity Reaction Status Date / Time allopurinol Allergy Rash Verified 05/06/18 11:08 Sulfa (Sulfonamide Allergy Unknown Verified 05/06/18 12:14 Antibiotics) - SNF / [facility] Transition Orders Admit to (Facility): [facility] Under the care of (Name): Dr Elton Mishra Discharge Diagnosis: 1. Non-ST elevation myocardial infarction 2. Ischemic cardiomyopathy 3. Valvular heart disease 4. Pulmonary hypertension 5. Pulmonary edema 6. Hyponatremia 7. Anemia 8. Gout 9. CKD stage IV, GFR 15-29 mL/min 10. Delirium 11. Malnutrition Medicare Certification Statement: I certify that [facility] is medically necessary on a continuing basis for any of the conditions for which she/he is receiving care during hospitalization. Notify PCP of admission and forward orders to primary provider for signature. Weight on admission and: Daily Call PCP immediately if weight increases by: 2.268 kg Other Notification Orders: Call PCP immediately if patient develops dyspnea, chest pain/tightness or edema. House Bowel Program: Yes Additional Bowel Program Orders: If no BM after 2 days, nurse may give M.O.M. 30ml PO PRN and/or ducolax Supp 1 [place] and/or NEETU 250mg P.O., and/or senna 1-2 tabs PO. On day 3 nurse may give repeat above order until residents constipation is resolved. Annual Influenza Vaccine (between Apr 20 and November 17): Yes Two-step PPD per [facility] [phone] or approved exception documents: Yes Treatments & Other Orders: Patient will be seen by PT and OT for assessment of weakness and rehabilitation. Oxygen Orders: None Lab Tests or X-ray Orders: None Medication Orders: PLEASE REFER TO THE DISCHARGE MEDICATION LIST. Insulin Orders?: No - Diet Type: No added salt Texture: Mech soft Liquids: Thin May have monthly special meal: Yes - Therapies | Activity Therapy: Evaluation | Treat if indicated: PT, OT Rehabilitation Potential: Maximize functional status Activity: Activity as Tolerated Weight Bearing: Full Weight Assistance Devices: Walker Follow Up: Patient will be discharged to [facility] after a non-ST elevation myocardial infarction for which patient was treated medically here in the hospital. The patient is being discharged on aspirin and Lipitor as well as Coreg and spironolactone to treat her myocardial infarction. The patient has increasing weakness and lives alone therefore needs [facility] for [facility]hab with physical therapy and Occupational Therapy."
[2018-05-09 16:16] VITALS: BP 90/67
--- NOTE | 2018-05-09 16:38 | DISCHARGE SUMMARY ---
Discharge Summary Admit Date: 05/06/18 Discharge Date: 05/09/18 Discharging Provider: Shaun Nino MD Primary Care Provider: Salty Lowery MD Code Status: Do Not Attempt Resuscitation Condition at Discharge: Fair Discharge Disposition: SNF DC/Xfer Discharge Facility Name: [facility] - DIAGNOSES Admission Diagnoses: 1. Non-ST elevation myocardial infarction 2. Hyponatremia 3. Chronic kidney disease 4. Murmur 5. Gout Discharge Diagnoses with Status of Each Condition: 1. Non-ST elevation myocardial infarction: Guarded 2. Ischemic cardiomyopathy: Guarded 3. Valvular heart disease: Stable 4. Pulmonary hypertension: Stable 5. Pulmonary edema: Stable 6. Hyponatremia: Stable 7. Anemia: Stable 8. Gout: Stable 9. CKD stage IV: Stable 10. Delirium: Stable 11. Protein calorie malnutrition: Guarded - HPI History of Present Illness: Patient is an 87-year-old female with a past medical history significant for remote myocardial infarction and percutaneous coronary angioplasty, hypertension, gout, CKD stage IV and murmur who presented to the emergency department for an abnormally low sodium. The patient started having trouble ap proximately 2 weeks ago when she had a gouty attack; medications were changed which caused her to have a rash. The medications also gave her diarrhea. She missed several of her medications and was told to decrease her Lasix from 80 mg a day to 40 mg a day. She became weaker with diarrhea, had no p.o. intake for 2 days prior to coming to the hospital. She went to see her doctor approximately 3 days ago, and lab tests were drawn. She was called today to go to the emergency department because of an abnormal sodium of 120. She presented to the emergency room and described this history of weakness, and a troponin level was drawn, which was found to be 4.5, and she was admitted to the medical [facility] for a non-ST elevation myocardial infarction. The patient declined any aggressive management such as coronary angiogram and asked that we keep her here and medically manage the patient for her [place]. - HOSPITAL COURSE Hospital Course: (1) NSTEMI (non-ST elevated myocardial infarction) Assessment/Plan: She has had no chest pain or SOB or wheezing since admission. Lovenox therapeutic dose was given to the patient for 2 days for NSTEMI Patient on optimal medical management with ASA, plavix Lipitor, coreg and efren ctone. Patient trop peaked at 4.48 and came down to 3.62 Echo showed a reduced EF of 40-45% Continued on lasix at discharge Patient stable for discharge with continued medical management (2) Ischemic cardiomyopathy Assessment/Plan: As in #1, only medical management planned. She wanted no invasive care. (3) Valvular heart disease Assessment/Plan: Severe aortic stenosis and moder-severe mitral regurg by Echo. She is not a surgical candidate. (4) Pulmonary HTN Assessment/Plan: By Echo this admission, her PAP is modertely elevated. Same meds as for Ischemic Cardiomyopathy planned. She has not been desaturating, while here. (5) Pulmonary edema Assessment/Plan: She has a wet cough and CXR has shows mild CHF. Patient on aldactone and lasix to manage pulmonary edema (6) Hyponatremia Assessment/Plan: Patient on lasix and aldactone Fluid restriction was stopped and she was encouraged to eat and drink more She appears to have chronic hyponatremia She is not currently symptomatic and although her Na is 122 she appears stable for discharge (7) Anemia Assessment/Plan: Hb stable (8) Gout Qualifiers: Gout site: toe Laterality: unspecified laterality Assessment/Plan: No complaints on Colcrys. (9) CKD (chronic kidney disease) stage 4, GFR 15-29 ml/min Assessment/Plan: Stable (10) Delirium Assessment/Plan: Pt did not allow a head CT, to evaluate for a CVA. Its suspected she was delusional from , and seroquel was ordered. The family and I reviewed her usual daily ability and activities which include sleeping all day and staying up all night listening to talk radio. This schedule and med dosing has been entirely the opposite of her usual, which adds to her confusion and possibly her weakness. She was stable at discharge and will continue seroquel (11) Malnutrition Qualifiers: Malnutrition type: protein-calorie malnutrition Assessment/Plan: The family also reviewed her diet: she eats frozen dinners only and a rare [employer] meal. She no longer shops for herself or prepares any meals at the stove. Encouraged nutrition. She sergio need [facility] to [facility] for PT and OT, and after that may need extra caregivers if she returns home. - ALLERGIES Allergies/Adverse Reactions: Allergies Allergy/AdvReac Type Severity Reaction Status Date / Time allopurinol Allergy Rash Verified 09/17/18 11:08 Sulfa (Sulfonamide Allergy Unknown Verified 05/06/18 12:14 Antibiotics) - MEDICATIONS Home Medications: Ambulatory Orders Medication Instructions Recorded Confirmed Aspirin [Aspir 81] 81 mg PO DAILY 11/06/13 05/06/18 Cholecalciferol (Vitamin D3) 2,000 unit PO DAILY 11/06/13 05/06/18 [Vitamin D3] Multivit-Min/FA/Lutein/Zeaxant 1 tab PO DAILY 11/06/13 05/06/18 [Icaps Mv Tablet] [place]-3 Fatty Acids/Fish Oil [Fish 1,200 units PO BID 11/06/13 05/06/18 Oil 1,000 mg Capsule] Simvastatin 40 mg PO DAILY 11/06/13 05/06/18 Colchicine [Colcrys] 0.6 mg PO BID PRN 05/06/18 05/06/18 Gabapentin 300 mg PO BID PRN 05/06/18 05/06/18 Magnesium Oxide 500 mg PO QPM 05/06/18 05/06/18 Carvedilol [Coreg] 12.5 mg PO BID tablet 05/09/18 Clopidogrel [Plavix] 75 mg PO DAILY tablet 05/09/18 Furosemide [Lasix] 40 mg PO DAILY #0 05/09/18 05/06/18 QUEtiapine [SEROquel] 25 mg PO QPM tablet 05/09/18 Spironolactone [Aldactone] 25 mg PO DAILY tablet 05/09/18 - PHYSICAL EXAM AT DISCHARGE General Appearance: positive: No acute distress, Other (Drowsy, thin and frail) Eyes Bilateral: positive: Normal inspection, PERRL, EOMI, No lid inflammation, Conjunctivae nml, No scleral icterus ENT: positive: ENT inspection nml, Pharynx nml, Dry mucous membranes (Dry). ne gative: Purulent nasal drainage, Pharyngeal erythema, Oral lesions Neck: positive: Nml inspection, Thyroid nml, No JVD, Trachea midline. negative: Lymphadenopathy (R), Lymphadenopathy (L), Carotid bruit, Tracheal deviation Respiratory: positive: No respiratory distress, Rales (Bases) Cardiovascular: positive: Regular rate & rhythm, No gallop, Systolic murmur Peripheral Pulses: positive: 2+ Abdomen: positive: Non-tender, No organomegaly, Nml bowel sounds, No distention Back: positive: Nml inspection. negative: CVA tenderness (R), CVA tenderness (L) Skin: positive: Color nml, No rash, Dry. negative: Cyanosis Extremities: positive: Non-tender, Full ROM, Nml appearance, Pedal edema (MIld) Neurologic/Psychiatric: positive: Oriented x3, CN's nml (2-12), Motor nml, Sen sation nml, Mood/affect nml - LABS Result Diagrams: 05/07/18 05:15 05/09/18 06:05 Other Lab Results: Laboratory Results WBC 5.0 x10^3/uL (4.8-10.8) 05/07/18 05:15 RBC 2.63 10^6/uL (4.20-5.40) L 05/07/18 05:15 Hgb 8.7 g/dL (12.0-16.0) L 05/07/18 05:15 Hct 24.7 % (37.0-47.0) L 05/07/18 05:15 MCV 93.9 fL (81.0-99.0) 05/07/18 05:15 MCH 33.0 pg (27.0-31.0) H 05/07/18 05:15 MCHC 35.1 g/dL (32.0-36.0) 05/07/18 05:15 RDW 16.3 % (12.0-15.0) H 05/07/18 05:15 Plt Count 190 10^3/uL (130-450) 05/07/18 05:15 MPV 8.8 fL (7.9-10.8) 05/07/18 05:15 Neut # (Auto) 3.0 10^3/uL (1.5-6.6) 05/07/18 05:15 Lymph # (Auto) 0.9 10^3/uL (1.5-3.5) L 05/07/18 05:15 [place] # (Auto) 0.7 10^3/uL (0.0-1.0) 05/07/18 05:15 Eos # (Auto) 0.3 10^3/uL (0.0-0.7) 05/07/18 05:15 Baso # (Auto) 0.0 10^3/uL (0.0-0.1) 05/07/18 05:15 Absolute Nucleated RBC 0.00 x10^3/uL 05/07/18 05:15 Nucleated RBC % 0.1 /100WBC 05/07/18 05:15 Sodium 122 mmol/L (135-145) L 05/09/18 06:05 Potassium 5.0 mmol/L (3.5-5.0) 05/09/18 06:05 Chloride 98 mmol/L (101-111) L 05/09/18 06:05 Carbon Dioxide 16 mmol/L (21-32) L 05/09/18 06:05 Anion Gap 8.0 (6-13) 05/09/18 06:05 BUN 48 mg/dL (6-20) H 05/09/18 06:05 Creatinine 2.0 mg/dL (0.4-1.0) H 05/09/18 06:05 Estimated GFR (MDRD) 23 (>89) L 05/09/18 06:05 Glucose 126 mg/dL (70-100) H 05/09/18 06:05 Calcium 8.8 mg/dL (8.5-10.3) 05/09/18 06:05 Iron 38 ug/dL (28-170) 05/07/18 05:15 TIBC 217 ug/dL (250-450) L 05/07/18 05:15 % Saturation 18 % (20-50) L 05/07/18 05:15 Transferrin 155 mg/dL (192-382) L 05/07/18 05:15 Total Bilirubin 0.8 mg/dL (0.2-1.0) 05/09/18 06:05 AST 51 IU/L (10-42) H 05/09/18 06:05 ALT 65 IU/L (10-60) H 05/09/18 06:05 Alkaline Phosphatase 114 IU/L (42-121) 05/09/18 06:05 Troponin I 3.62 ng/mL (<0.49) H* 05/07/18 05:15 Total Protein 5.7 g/dL (6.7-8.2) L 05/09/18 06:05 Albumin 3.1 g/dL (3.2-5.5) L 05/09/18 06:05 Globulin 2.6 g/dL (2.1-4.2) 05/09/18 06:05 Albumin/Globulin Ratio 1.2 (1.0-2.2) 05/09/18 06:05 Triglycerides 87 mg/dL (-149) 05/07/18 05:15 Cholesterol 134 mg/dL (-199) 05/07/18 05:15 LDL Cholesterol, Calc 92 mg/dL (-129) 05/07/18 05:15 VLDL Cholesterol 17 mg/dL 05/07/18 05:15 HDL Cholesterol 25 mg/dL (60-) L 05/07/18 05:15 LDL/HDL Ratio 3.7 (<4.4) 05/07/18 05:15 Cholesterol/HDL Ratio 5.4 (<4.4) 05/07/18 05:15 Lipase 68 U/L (22-51) H 05/06/18 10:54 Vitamin B12 3108 pg/mL (180-914) H 05/07/18 05:15 Folate 27.00 ng/mL (5.90 - >24.8) 05/07/18 05:15 Urine Color YELLOW 05/06/18 11:46 Urine Clarity CLEAR (CLEAR) 05/06/18 11:46 Urine pH 5.5 PH (5.0-7.5) 05/06/18 11:46 Ur Specific [place] <=1.005 (1.002-1.030) 05/06/18 11:46 Urine Protein NEGATIVE mg/dL (NEGATIVE) 05/06/18 11:46 Urine Glucose (UA) NEGATIVE mg/dL (NEGATIVE) 05/06/18 11:46 Urine Ketones NEGATIVE mg/dL (NEGATIVE) 05/06/18 11:46 Urine Occult Blood NEGATIVE (NEGATIVE) 05/06/18 11:46 Urine Nitrite NEGATIVE (NEGATIVE) 05/06/18 11:46 Urine Bilirubin NEGATIVE (NEGATIVE) 05/06/18 11:46 Urine Urobilinogen 0.2 (NORMAL) E.U./dL (NORMAL) 05/06/18 11:46 Ur Leukocyte Esterase MODERATE (NEGATIVE) H 05/06/18 11:46 Urine RBC 0-5 /HPF (0-5) 05/06/18 11:46 Urine WBC 11-25 /HPF (0-5) H 05/06/18 11:46 Ur Squamous Epith Cells MANY Squamous (<= Few) H 05/06/18 11:46 Urine Bacteria Few /HPF (None Seen) 05/06/18 11:46 Ur Microscopic Review INDICATED 05/06/18 11:46 Urine Culture Comments NOT INDICATED 05/06/18 11:46 - DIAGNOSTIC IMAGING Diagnostic Imaging Results: Final report reviewed Diagnostic Imaging Results Comments: Chest x-ray Impression: Interval development of small pleural effusion as well as likely interstitial pulmonary congestion Chest x-ray 05/07/2018 Impression: Small bilateral pleural effusions and crowding of interstitial pulmonary markings suggestive of edema. Chest x-ray 05/08/2018 Impression: 1. Increase mild vascular prominence and interstitial edema or infiltrate and increased bilateral pleural effusions and bibasilar opacities. This may also represent progressive CHF. Pneumonia not excluded. - FOLLOW UP Follow Up: Patient is being discharged to [facility] for halfway facility. She will undergo PT and OT evaluation at [facility]. Patient is being discharged with optimal medications for coronary artery disease given her non-ST elevation myocardial infarction. - TIME SPENT Time Spent in Discharge (Minutes): 45
== END 2018-05-09 16:32 | DRG 281 ==
LOC: ED 10:44 → MS2 12:54
PROVIDERS: ADMIT Internal Medicine; ATTEND Internal Medicine
DX: I21.9 Acute myocardial infarction, unspecified (principal); D64.9 Anemia, unspecified; I21.4 Non-ST elevation (NSTEMI) myocardial infarction; E87.1 Hypo-osmolality and hyponatremia; E86.0 Dehydration; E78.00 Pure hypercholesterolemia, unspecified; N18.4 Chronic kidney disease, stage 4 (severe); I13.0 Hypertensive heart and chronic kidney disease with heart failure and stage 1 through stage 4 chronic kidney disease, or unspecified chronic kidney disease; N28.9 Disorder of kidney and ureter, unspecified; R19.7 Diarrhea, unspecified; K52.1 Toxic gastroenteritis and colitis; E44.1 Mild protein-calorie malnutrition; I25.5 Ischemic cardiomyopathy; I50.9 Heart failure, unspecified; I08.0 Rheumatic disorders of both mitral and aortic valves; I27.20 Pulmonary hypertension, unspecified; I25.10 Atherosclerotic heart disease of native coronary artery without angina pectoris; M10.9 Gout, unspecified; R41.0 Disorientation, unspecified; H54.7 Unspecified visual loss; D63.1 Anemia in chronic kidney disease; Z66 Do not resuscitate; Z96.649 Presence of unspecified artificial hip joint; Z68.22 Body mass index [BMI] 22.0-22.9, adult; Z79.82 Long term (current) use of aspirin; Z95.5 Presence of coronary angioplasty implant and graft; I25.2 Old myocardial infarction
CPT/HCPCS: 36415; 71045; 71046; 80048; 80053; 80061; 81001; 81003; 82270; 82607; 82746; 83540; 83690; 83721; 84466; 84484; 85025; 87086; 93005; 93010; 93306; 96374; 99283; 99284

== ENCOUNTER 2018-05-15 12:30 | Outpatient (CLI) | payer MEDICARE, OTHER ==
[2018-05-15 15:00] LABS: BASOPHILS % (AUTO) 0.4 %; EOSINOPHILS # (AUTO) 0.2 10^3/uL (0.0-0.7); EOSINOPHILS % (AUTO) 2.3 %; HGB - HEMOGLOBIN 8.8 g/dL (12.0-16.0); LYMPHOCYTES # (AUTO) 0.9 10^3/uL (1.5-3.5); LYMPHOCYTES % (AUTO) 10.8 %; MEAN CORPUSCULAR HEMOGLOBIN 33.3 pg (27.0-31.0); MEAN CORPUSCULAR VOLUME 97.7 fL (81.0-99.0); MEAN PLATELET VOLUME 9.6 fL (7.9-10.8); MONOCYTES # (AUTO) 0.8 10^3/uL (0.0-1.0); MONOCYTES % (AUTO) 9.5 %; NEUTROPHILS # (AUTO) 6.2 10^3/uL (1.5-6.6); PLT - PLATELET COUNT 168 10^3/uL (130-450); RED BLOOD COUNT 2.65 10^6/uL (4.20-5.40); RED CELL DISTRIBUTION WIDTH 18.7 % (12.0-15.0)
[2018-05-15 15:15] LABS: ALBUMIN 3.2 g/dL (3.2-5.5); ALBUMIN/GLOBULIN RATIO 1.3 (1.0-2.2); BILIRUBIN,TOTAL 0.6 mg/dL (0.2-1.0); CALCIUM 8.6 mg/dL (8.5-10.3); CREATININE 2.8 mg/dL (0.4-1.0); TOTAL PROTEIN 5.7 g/dL (6.7-8.2)
== END 2018-05-15 12:31 | disposition home or self-care (01) ==
LOC: LAB.R 12:30
DX: E87.0 Hyperosmolality and hypernatremia (principal); I10 Essential (primary) hypertension; D64.9 Anemia, unspecified; I21.4 Non-ST elevation (NSTEMI) myocardial infarction; I50.9 Heart failure, unspecified
CPT/HCPCS: 80053; 83880; 85025

== ENCOUNTER 2018-05-17 11:05 | Outpatient (CLI) | payer MEDICARE, OTHER ==
[2018-05-17 14:03] LABS: BASOPHILS % (AUTO) 0.3 %; EOSINOPHILS # (AUTO) 0.1 10^3/uL (0.0-0.7); EOSINOPHILS % (AUTO) 0.8 %; HGB - HEMOGLOBIN 8.6 g/dL (12.0-16.0); LYMPHOCYTES # (AUTO) 0.8 10^3/uL (1.5-3.5); LYMPHOCYTES % (AUTO) 11.1 %; MEAN CORPUSCULAR HEMOGLOBIN 33.6 pg (27.0-31.0); MEAN CORPUSCULAR HGB CONC 34.5 g/dL (32.0-36.0); MEAN CORPUSCULAR VOLUME 97.4 fL (81.0-99.0); MEAN PLATELET VOLUME 9.3 fL (7.9-10.8); MONOCYTES # (AUTO) 0.6 10^3/uL (0.0-1.0); MONOCYTES % (AUTO) 8.7 %; NEUTROPHILS # (AUTO) 5.7 10^3/uL (1.5-6.6); NEUTROPHILS % (AUTO) 79.1 %; PLT - PLATELET COUNT 138 10^3/uL (130-450); RED BLOOD COUNT 2.56 10^6/uL (4.20-5.40); RED CELL DISTRIBUTION WIDTH 19.5 % (12.0-15.0); WHITE BLOOD COUNT 7.1 x10^3/uL (4.8-10.8)
== END 2018-05-17 11:06 | disposition home or self-care (01) ==
LOC: LAB.R 11:05
DX: D64.9 Anemia, unspecified (principal); E87.1 Hypo-osmolality and hyponatremia
CPT/HCPCS: 80053; 85025

== ENCOUNTER 2018-05-21 08:00 | Outpatient (CLI) | payer MEDICARE, OTHER ==
[2018-05-21 15:09] LABS: BASOPHILS % (AUTO) 0.1 %; EOSINOPHILS % (AUTO) 0.1 %; HGB - HEMOGLOBIN 8.6 g/dL (12.0-16.0); LYMPHOCYTES # (AUTO) 0.5 10^3/uL (1.5-3.5); LYMPHOCYTES % (AUTO) 4.1 %; MEAN CORPUSCULAR HEMOGLOBIN 33.3 pg (27.0-31.0); MEAN CORPUSCULAR HGB CONC 33.8 g/dL (32.0-36.0); MEAN CORPUSCULAR VOLUME 98.6 fL (81.0-99.0); MEAN PLATELET VOLUME 9.8 fL (7.9-10.8); MONOCYTES # (AUTO) 1.7 10^3/uL (0.0-1.0); MONOCYTES % (AUTO) 12.8 %; NEUTROPHILS # (AUTO) 10.8 10^3/uL (1.5-6.6); NEUTROPHILS % (AUTO) 82.9 %; PLT - PLATELET COUNT 131 10^3/uL (130-450); RED BLOOD COUNT 2.59 10^6/uL (4.20-5.40); RED CELL DISTRIBUTION WIDTH 19.9 % (12.0-15.0); WHITE BLOOD COUNT 13.1 x10^3/uL (4.8-10.8)
[2018-05-21 15:20] LABS: ALBUMIN 2.8 g/dL (3.2-5.5); ALBUMIN/GLOBULIN RATIO 0.9 (1.0-2.2); BILIRUBIN,TOTAL 1.1 mg/dL (0.2-1.0); CALCIUM 8.7 mg/dL (8.5-10.3); CREATININE 2.9 mg/dL (0.4-1.0); TOTAL PROTEIN 5.8 g/dL (6.7-8.2)
[2018-05-21 15:29] LABS: PLATELET ESTIMATE, MANUAL NORMAL (130-450,000) (NORMAL)
[2018-05-21 15:30] LABS: DIFFERENTIAL COMMENT MANUAL=AUTO DIFF
== END 2018-05-21 08:01 | disposition home or self-care (01) ==
LOC: LAB.R 08:00
PROVIDERS: ATTEND Family Medicine
DX: N18.4 Chronic kidney disease, stage 4 (severe) (principal); I25.5 Ischemic cardiomyopathy; D64.9 Anemia, unspecified
CPT/HCPCS: 80053; 85025